=== PATIENT | male | born 1945 | race Caucasian/White ===

== ENCOUNTER 2021-04-02 07:08 | Day surgery (SDC) | payer OTHER ==
[2021-04-02] MEDS ORDERED: Ringers Lactate 1,000 ML IV ONE (07:32)
[2021-04-02] MEDS ORDERED: LIDOCAINE 1% MPF 5 ML VIAL ONE (08:18)
[2021-04-02] MEDS ORDERED: propofoL 200 MG/20 ML VIAL IV ONE (08:18)
--- NOTE | 2021-04-02 09:24 | ENDO RPT ---
[address], [address] EGD PROCEDURE REPORT EXAM DATE: 04/02/2021 PATIENT NAME: Joseph Gentile MR#: [id number] BIRTHDATE: 1945 ATTENDING: James Greenwood DR STATUS: outpatient [employer]ER: Purnima Paulson RN and Alta Farris CST INDICATIONS: The patient is a 75 yr old Male here for an EGD due to GERD and abdominal pain PROCEDURE PERFORMED: EGD with biopsy for H. pylori MEDICATIONS: Per Anesthesia. TOPICAL ANESTHETIC: none CONSENT: The patient understands the risks and benefits of the procedure and understands that these risks include, but are not limited to: sedation, allergic reaction, infection, perforation and/or bleeding. Alternative means of evaluation and treatment include, among others: physical exam, x-rays, and/or surgical intervention. The patient elects to proceed with this endoscopic procedure. DESCRIPTION OF PROCEDURE: During intra-op preparation period all mechanical medical equipment was checked for proper function. Hand hygiene and appropriate measures for infection prevention was taken. Procedure, possible complications, and alternatives including but not limited to the possibility of bleeding, perforation, tear, infection, sepsis, need for surgery, need for blood transfusion, and anesthesia related complications were explained to the patient. After the risks, benefits and alternatives of the procedure were thoroughly explained, Informed consent was verified, confirmed and timeout was successfully executed by the treatment team. The patient was placed in the left lateral position. The patient was anesthetized with topical anesthesia. Through the anesthetized oropharyngeal area, the scope was passed without any difficulty. The EC-3890Li ([id number]) and [id number] ([id number]) endoscope was introduced through the mouth and advanced to the first portion of the duodenum. Retroflexed views revealed no abnormalities. The gastroscope was then slowly withdrawn and removed. Multiple erosions were found in the total stomach. Multiple biopsies were obtained and sent to pathology. Moderate gastritis was found in the total stomach. Multiple biopsies were obtained and sent to pathology. A biopsy for H. pylori was taken. 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 likely benign narrowed non-inflamed non-ulcerated non-bleeding smooth With standard forceps, a biopsy was obtained and sent to pathology. Normal GE junction was noted. ADVERSE EVENTS: There were no complications. IMPRESSIONS: 1. Multiple erosions were found in the total stomach 2. Moderate gastritis was found in the total stomach 3. A stricture was found in the first portion of the duodenum 4. Normal GE junction RECOMMENDATIONS: 1. acid suppression therapy 2. anti-reflux regimen 3. await biopsy results 4. follow-up: office 2 week(s) 5. avoid NSAIDS 6. follow-up of helicobacter pylori status, treat if indicated 7. gastric emptying study REPEAT EXAM: James Greenwood DR eSigned: James Greenwood DR 04/02/2021 9:24 AM cc: CPT CODES: ICD9 CODES: PATIENT NAME: Joseph Gentile MR#: [id number]
--- NOTE | 2021-04-02 09:28 | ENDO RPT ---
[address], [address] COLONOSCOPY PROCEDURE REPORT EXAM DATE: 04/02/2021 PATIENT NAME: Joseph Gentile MR #: [id number] BIRTHDATE: 1945 ATTENDING: James Greenwood DR STATUS: outpatient [employer]TING [employer] OPERATOR: Purnima Paulson RN and Alta Farris CST INDICATIONS: The patient is a 75 yr old Male here for a colonoscopy due to colon cancer screening PROCEDURE PERFORMED: Colonoscopy with biopsy MEDICATIONS: Per Anesthesia. ESTIMATED BLOOD LOSS: None CONSENT: The patient understands the risks and benefits of the procedure and understands that these risks include, but are not limited to: sedation, allergic reaction, infection, perforation and/or bleeding. Alternative means of evaluation and treatment include, among others: physical exam, x-rays, and/or surgical intervention. The patient elects to proceed with this endoscopic procedure. DESCRIPTION OF PROCEDURE: During intra-op preparation period all mechanical medical equipment was checked for proper function. Hand hygiene and appropriate measures for infection prevention was taken. Procedure, possible complications, alternatives including, but not limited to possibility of bleeding, perforation, tear, infection, sepsis, need for surgery, need for blood transfusion, were explained to the patient. After the risks, benefits and alternatives of the procedure were thoroughly explained, Informed consent was verified, confirmed and timeout was successfully executed by the treatment team. The patient was placed in the left lateral position. A digital rectal exam was performed and revealed an enlarged prostate and A digital rectal exam was performed and revealed increased firmness of the prostate. After appropriate level of anesthesia, the scope was passed. The EC-3890Li ([id number]) and EG-[id number] ([id number]) endoscope was introduced through the anus and advanced to the cecum, which was identified by both the appendix and ileocecal valve. The quality of the prep was fair. The instrument was then slowly withdrawn as the colon was fully examined. Scope withdrawal time was 12 minutes. 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 Multiple biopsies of the lesion were performed using cold forceps. The colonic mucosa appeared normal. Mild diverticulosis was noted in the sigmoid colon. No bleeding was noted from the diverticulosis. Retroflexed views revealed no abnormalities. The scope was then completely withdrawn from the patient and the procedure terminated. ADVERSE EVENTS: There were no complications. IMPRESSIONS: 1. Small angiodysplastic lesion, at the hepatic flexure, and in the right colon; multiple biopsies of the lesion were performed 2. The colonic mucosa appeared normal 3. Internal hemorrhoids RECOMMENDATIONS: 1. follow-up: office 2 week(s) 2. avoid NSAIDS for 2 weeks 3. fiber rich diet RECALL: James Greenwood DR eSigned: James Greenwood DR 04/02/2021 9:27 AM cc: CPT CODES: ICD9 CODES: PATIENT NAME: Joseph Gentile MR#: [id number]
[2021-04-02 10:10] VITALS: BP 129/76; TEMP 97.1; O2SAT 99
== END 2021-04-02 10:07 | disposition home or self-care (01) ==
LOC: OR 07:08
PROVIDERS: ATTEND Surgery
PROC: 0DB98ZX Excision of Duodenum, Via Natural or Artificial Opening Endoscopic, Diagnostic (ICD-10-PCS; 2021-04-02)
PROC: 0DB68ZX Excision of Stomach, Via Natural or Artificial Opening Endoscopic, Diagnostic (ICD-10-PCS; 2021-04-02)
PROC: 0DBF8ZX Excision of Right Large Intestine, Via Natural or Artificial Opening Endoscopic, Diagnostic (ICD-10-PCS; principal; 2021-04-02 08:15)
PROC: 0DBL8ZX Excision of Transverse Colon, Via Natural or Artificial Opening Endoscopic, Diagnostic (ICD-10-PCS; 2021-04-02 08:15)
DX: K52.9 Noninfective gastroenteritis and colitis, unspecified (principal); K29.50 Unspecified chronic gastritis without bleeding; K21.9 Gastro-esophageal reflux disease without esophagitis; R10.9 Unspecified abdominal pain; Z20.822 Contact with and (suspected) exposure to COVID-19
CPT/HCPCS: 88312; 88305; 45380; 43239; U0003; J2704; J7120